=== PATIENT | male | born 1955 | race Caucasian/White ===

== ENCOUNTER 2017-01-13 21:39 | Observation (INO) | payer BC, MEDICAID ==
[2017-01-13] MEDS ORDERED: Sodium Chloride 0.9% 10 ML Syringe FLUSH PRN (21:42)
[2017-01-13] MEDS ORDERED: Famotidine 20 MG/2 ML SDV IVPUSH ONE (21:42)
[2017-01-13] MEDS ORDERED: Ticagrelor 90 MG Tab PO ONE (21:42)
--- NOTE | 2017-01-13 21:42 | EDM.PDOC ---
ED HPI GENERAL MEDICAL PROBLEM - General Chief Complaint: Chest Pain Stated Complaint: chest pain, SOB Time Seen by Provider: 01/13/17 21:42 Source of Information: Reports: Patient, Old Records ([facility] chart/EMR), Other (Friend/neighbor) History Limitations: Reports: No Limitations - History of Present Illness INITIAL COMMENTS - FREE TEXT/NARRATIVE: Patient was brought to the emergency room for evaluation of 10/10 retrosternal chest pressure with radiation to the neck region bilaterally, shoulders bilaterally, and arms with additional sudden onset dyspnea, mild dizziness, and brief showed nausea. His symptoms began at about 8 PM this evening while he was sitting in his recliner at home. He has noticed some decreased exercise tolerance and some increased dependent edema over the last couple of months. The patient denies any heart flutter orthostasis, orthopnea, diaphoresis, paresthesias, or any other anginal-type symptoms. He has had similar symptoms in the distant past with previous negative heart workup as below. No recent history of abdominal pain, heartburn, nausea, diarrhea, melena, gross hematochezia, or any food intolerance, including fatty foods, etc.. The patient also denies any recent fever, cough, wheezing, dyspnea, etc.. No history of recent headaches, visual changes, diplopia, change in mental status, or other change in neurological status. The patient did take 2 uncoated regular strength aspirin about one hour prior to arrival with symptoms improving to 3/10 at time of initial evaluation in our emergency room Onset: Today, Sudden Onset Date: 01/13/17 Onset Time: 20:00 Duration: Constant, Improving Location: Reports: Neck, Chest, Upper Extremity, Left, Upper Extremity, Right, Radiates to (As above). Denies: Head, Face, Abdomen, Back, Lower Extremity, Left, Lower Extremity, Right, Generalized Quality: Reports: Pressure, Same as Previous Episode Severity: Severe Improves with: Reports: Medication (Aspirin as above) Worsens with: Reports: None Context: Reports: Other (As above) Associated Symptoms: Reports: Nausea/Vomiting (No emesis with nausea quickly resolving after initial onset of symptoms), Shortness of Breath. 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 Denies: Allergic Rhinitis, Cataract, Glaucoma, Macular Degeneration, Retinal Detachment Other HEENT History: Bilateral presbycusis with patient not having hearing aide therapy; patient wears glasses Cardiovascular History: Reports: High Cholesterol, Hypertension. Denies: Afib, Aneurysm, Arrhythmia, Blood Clots/VTE/DVT, CAD, Heart Failure, Heart Murmur, PVD , Syncope Respiratory History: Reports: COPD, Intubation, Previous, Sleep Apnea, Other ( See Below). Denies: Asthma, Intubation, Difficult, PE, Pneumothorax, TB Other Respiratory History: noncompliant with his CPAP for his sleep apnea Gastrointestinal History: Reports: Colon Polyp, GERD, Hiatal Hernia, Other (See Below). Denies: Celiac Disease, Cholelithiasis, Chronic Constipation, Chronic Diarrhea, Diverticulosis, Gastritis, GI Bleed, Hepatitis, Inflammatory Bowel Disease, Irritable Bowel Syndrome, Jaundice, Pancreatitis, PUD Other Gastrointestinal History: Polyp of unknown type removed by colonoscopy as below Genitourinary History: Reports: BPH, Renal Calculus, Other (See Below). Denies : Acute Renal Failure, Chronic Renal Insuffiency, Retention, Urinary, STD, Urinary Incontinence, UTI, Recurrent Other Genitourinary History: Erectile dysfunction; right-sided urolithiasis in 2016 with procedure required as below Musculoskeletal History: Reports: Arthritis, Back Pain, Chronic, Neck Pain, Chronic, Osteoarthritis. Denies: Amputation, Fracture, Gout, RA, SLE Neurological History: Reports: Headaches, Chronic, Migraines, Neuropathy, Diabetic, Neuropathy, Peripheral, Other (See Below). Denies: Cerebral Aneurysms , Concussion, CVA, Head Trauma, MS, Parkinson's, Seizure, TIA Other Neuro History: Intermittent vertigo Psychiatric History: Denies: Abuse, Victim of, ADD, ADHD, Addiction, Anxiety, Depression, Psych Hospitalization(s), PTSD, Suicide Attempt, Suicidal Ideation Endocrine/Metabolic History: Reports: Diabetes, Type II, Obesity/BMI 30+. Denies: Diabetes, Type I, Hypothyroidism, IDDM Hematologic History: Reports: None. Denies: Anemia, Blood Transfusion(s), Iron Deficiency Immunologic History: Reports: None. Denies: AIDS, HIV, SLE Oncologic (Cancer) History: Reports: None. Denies: Basal Cell Carcinoma, Colon , Hodgkin's Lymphoma, Leukemia, Malignant Melanoma, Non-Hodgkin's Lymphoma, Prostate, Squamous Cell Carcinoma Dermatologic History: Reports: None. Denies: Eczema, Psoriasis - Infectious Disease History Infectious Disease History: Reports: Measles. Denies: C-Difficile, Chicken Pox , Meningitis, Mononucleosis, MRSA, Mumps, Pertussis (Whooping Cough), Rheumatic Fever, Rubella, Scarlet Fever, Shingles, TB, VRE - Past Surgical History Head Surgeries/Procedures: Reports: None HEENT Surgical History: Reports: Oral Surgery, Other (See Below). Denies: Adenoidectomy, Cataract Surgery, Eye Surgery, Laser Surgery, Myringotomy w Tube( s), Naso-Sinus Surgery, Tonsillectomy Other HEENT Surgeries/Procedures: Multiple teeth extractions with complete upper dentures currently Cardiovascular Surgical History: Reports: None. Denies: Varicose Respiratory Surgical History: Reports: None. Denies: Thoracentesis GI Surgical History: Reports: Bariatric Procedure, Colonoscopy, EGD, Ludwig Fundoplication, Polypectomy, Other (See Below). Denies: Appendectomy, Cholecystectomy, Hernia, Abdominal, Hernia, Inguinal, Hernia Repair/Other Other GI Surgeries/Procedures: Last colonoscopy in about 2005 with previous EGD , upper GI, and barium enema in the late ; Ludwig fundoplication with concomitant gastric bypass surgery in 2014 Male Surgical History: Reports: Kidney Stone Extraction, TURP-Transurethral Resection of Prostate, Other (See Below). Denies: Circumcision, Vasectomy Other Male Surgeries/Procedures: unsuccessful right ureteral stone extraction with concomitant TURP in 2016 Endocrine Surgical History: Reports: None. Denies: Thyroid Biopsy Neurological Surgical History: Reports: C-Spine, Discectomy, Laminectomy, Spinal Fusion, Other (See Below). Denies: Intracranial, Lumbar Spine Other Neurological Surgeries/Procedures: Cervical disc surgery including fusion by anterior approach in about 2007 Musculoskeletal Surgical History: Reports: Arthroscopic Knee, Arthroscopic Procedure, Hip Replacement, Other (See Below). Denies: Carpal Tunnel, Ganglion Cyst, ORIF Other Musculoskeletal Surgeries/Procedures:: Right hip TEP in about 2014; Left arthroscopic knee surgery in about 2006 Oncologic Surgical History: Reports: None Dermatological Surgical History: Reports: None - Past Imaging History Past Imaging History: Reports: Angiography (Parent negative heart catheterization in about 2007), CAT Scan (CT of the abdomen and pelvis with contrast on 08/12/14), Stress Testing (Negative Cardiolite stress test on with ejection fraction of 62%) Social & Family History - Family History HEENT: Reports: Impaired Vision, Other (See Below). Denies: Allergic Rhinitis, Glaucoma, Macular Degeneration, Retinal Detachment Other HEENT Family History: Sisters 2 with macular degeneration; 1 sister with glaucoma with another sister with severe vision problems of unknown etiology Cardiac: Reports: Bypass, CAD, Hypertension, HI, Other (See Below). Denies: Afib, Aneurysm, Arrhythmia, Blood Clots/VTE/DVT, Heart Murmur, Syncope Other Cardiac Family History: Mother with fatal HI at age 72 with initial HI in her 60s, 3 sisters with fatal MIs at ages 51, 59, and 64 with another sister having an initial HI in her late 40s with subsequent 4 vessel CABG with the sister also having several CVAs as below with eventual fatal HI at age 64; hypertension in parents, four sisters and 2 brothers Respiratory: Reports: COPD, Sleep Apnea, Other (See Below). Denies: Asthma, PE , Pneumothorax Other Respiratory Family Hisory: Father with severe COPD with history of tobacco use; sister with sleep apnea GI: Reports: None. Denies: Celiac Disease, Cholelithiasis, Colon Polyps, GERD, GI bleed, Inflammatory Bowel Disease, Irritable Bowel Syndrome, PUD : Reports: None. Denies: Dialysis, Renal Calculus, Renal Disease/ Insufficiency OBGYN: Reports: None. Denies: Endometriosis, Recurrent Spontaneous Musculoskeletal: Reports: None. Denies: Gout, RA, SLE Neurological: Reports: CVA, Neuropathy, Diabetic, Neuropathy, Peripheral, Other (See Below). Denies: Alzheimers Disease, Cerebral Aneurysms, Dementia, Migraines, MS, Parkinson's, Seizure, TIA Other Neurological Family History: Sister with recurrent CVA, diabetic neuropathy and peripheral neuropathy Psychiatric: Reports: None. Denies: Abuse, Victim of, ADD, Anxiety, Depression , Psych Hospitalization(s), PTSD, Suicide Attempt Endocrine/Metabolic: Reports: Diabetes, type II, IDDM, Other (See Below). Denies: Diabetes, Type I, Hypothyroidism Other Endocrine/Metabolic Family History: Four sisters and mother with IDDM; 2 maternal aunts may have had diabetes Hematologic: Reports: None. Denies: Anemia, SLE Immunologic: Reports: None. Denies: AIDS, HIV, SLE Dermatologic: Reports: None. Denies: Eczema, Psoriasis Oncologic: Reports: Colon, Skin, Other (See Below). Denies: Hodgkin's Lymphoma , Leukemia, Non-Hodgkin's Lymphoma, Prostate Other Oncologic Family History: Father with unknown type of skin cancer - Tobacco Use Smoking Status *Q: Former Smoker Years of Tobacco use: 40 Packs/Tins Daily: 1 (Maximum use of 2 packs per day with patient smoking between ages 12 and 52) Used Tobacco, but Quit: Yes Smoking Cessation Information Provided To Patient: No Second Hand Smoke Exposure: No Second Hand Smoke Education Provided: No - Caffeine Use Caffeine Use: Reports: Coffee (10 cups per day with less coffee when drinking soda), Soda (3 sodas per day). Denies: Energy Drinks, Tea - Alcohol Use Alcohol Use History: Yes Days Per Week of Alcohol Use: 0 (No previous DWIs, problems with alcohol abuse, etc.) Alcohol Use in Last Twelve Months: No - Recreational Drug Use Recreational Drug Use: No Drug Use in Last 12 Months: No Recreational Drug Type: Denies: Amphetamines (Speed), Cocaine, Heroin, Inhalants (Glues, Solvents, Aerosols), LSD (Acid), Marijuana/Hashish, Methamphetamine - Living Situation & Occupation Living situation: Reports: (His second and 2007 with 2 children from this relationship, although his second did previously have problems with alcohol; course from his first with 3 children from that marriage) 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 Denies: Fever, Chills, Malaise, Weakness , Fatigue, Night Sweats, Diaphoresis, Decreased Appetite, Weight Loss, Weight Gain HEENT: Reports: Glasses, Hearing Loss (Stable chronic). Denies: Dental Pain, Ear Pain, Eye Pain, Rhinitis, Sinus Problem, Throat Pain, Vision Change Respiratory: Reports: Shortness of Breath. Denies: Wheezing, Pleuritic Chest Pain, Cough Cardiovascular: Reports: Chest Pain, Dyspnea on Exertion, Edema, Lightheadedness. Denies: Blood Pressure Problem, Claudication, Orthopnea, Palpitations, PND, Syncope Endocrine: Reports: No Symptoms (Patient does not check his blood sugars at home ) GI/Abdominal: Reports: Nausea. Denies: Abdominal Pain, Anorexia, Black Stool, Bloody Stool, Constipation, Diarrhea, Decreased Appetite, Difficulty Swallowing , Distension, Flatus, Hematochezia, Melena, Stool Incontinence, Vomiting : Reports: No Symptoms. Denies: Discharge, Dysuria, Flank Pain, Frequency, Hematuria, Incontinence, Pain, Urgency, Urinary Retention Musculoskeletal: Reports: Neck Pain (Radiated chest pain as above), Shoulder Pain (As above), Arm Pain (As above). Denies: Back Pain Skin: Reports: No Symptoms. Denies: Diaphoresis, Wound Neurological: Reports: No Symptoms. Denies: Confusion, Dizziness, Headache, Numbness, Paresthesia, Tingling, Weakness Psychiatric: Reports: No Symptoms. Denies: Agitation, Anxiety, Confusion, Depression, Hallucinations Hematologic/Lymphatic: Reports: No Symptoms Immunologic: Reports: No Symptoms ED EXAM, GENERAL - Physical Exam Exam: See Below Exam Limited By: No Limitations General Appearance: Alert, WD/WN, No Apparent Distress Eye Exam: Bilateral Eye: EOMI, Normal Inspection (No nystagmus), PERRL Ears: Normal External Exam, Normal Canal, Normal TMs, Hearing Loss (Mild bilateral presbycusis). No: Hearing Grossly Normal Nose: Normal Inspection, Normal Mucosa, No Blood Throat/Mouth: Normal Inspection, Normal Lips, Normal Gums, Normal Oropharynx, Normal Voice, No Airway Compromise. No: Normal Teeth (Multiple missing teeth lowers with complete upper dentures), Dysphagia, Perioral Cyanosis Head: Atraumatic, Normocephalic. No: Facial Swelling, Facial Tenderness, Sinus Tenderness Neck: Supple, Non-Tender, Full Range of Motion, Carotid Bruit (Mild bilateral carotid bruits). No: Lymphadenopathy (L), Lymphadenopathy (R), Thyromegaly Respiratory/Chest: No Respiratory Distress, Lungs Clear, Normal Breath Sounds, No Accessory Muscle Use, Chest Non-Tender. No: Pleural Rub, Retractions Cardiovascular: Normal Peripheral Pulses, Regular Rate, Rhythm, No Edema, No Gallop, No JVD, No Murmur, No Rub. No: Gallop/S3, Gallop/S4, Friction Rub Peripheral Pulses: 2+: Radial (L), Radial (R), Dorsalis Pedis (L), Dorsalis Pedis (R) GI/Abdominal: Normal Bowel Sounds, Soft, Non-Tender, No Organomegaly, No Distention, No Abnormal Bruit, No Mass, Other (Obese). No: Guarding (Male) Exam: Deferred Rectal (Males) Exam: Deferred Back Exam: Normal Inspection, Full Range of Motion. No: CVA Tenderness (L), CVA Tenderness (R), Muscle Spasm Extremities: Normal Range of Motion, Non-Tender, Normal Capillary Refill, Pedal Edema (+1 bilateral pedal/pretibial edema). No: Mickie's Sign Neurological: Alert, Oriented, CN II-XII Intact, Normal Cognition, Normal Gait, Normal Reflexes (Negative Babinski's), No Motor/Sensory Deficits Psychiatric: Normal Affect Skin Exam: Warm, Dry, Intact, Normal Color, No Rash. No: Diaphoretic, Ecchymosis, Wound/Incision Lymphatic: No Adenopathy EKG INTERPRETATION EKG Date: 01/13/17 Time: 21:47 Rhythm: NSR Rate (Beats/Min): 63 [place]: Normal (Left cardiac axis which is a change from previous neutral cardiac axis) P-Wave: Enlarged (Mild Diffuse biphasic P waves with mild pulmonary hypertension by EKG) QRS: Wide (QRS interval 0.10 seconds representing repolarization changes with new T-wave inversion in lead 3 and resolution of previous T-wave inversion in lead V1) ST-T: Normal QT: Normal IL/PQ Interval: 0.17 seconds Comparison: Change From Previous EKG (As above since Cardiolite stress test on 12/24/11) EKG Interpretation Comments: 1. No acute ischemic changes 2. Pulmonary hypertension by EKG Course - Vital Signs Last Recorded V/S: Last Vital Signs Temp 36.1 C 01/13/17 22:20 Pulse 59 L 01/13/17 23:07 Resp 12 01/13/17 23:07 BP 131/71 01/13/17 23:07 Pulse Ox 100 01/13/17 23:07 Vital Signs - 24 hr 01/13/17 01/13/17 01/13/17 21:39 21:41 21:42 Temperature [ 36.6 C Temporal] Pulse, 67 64 Peripheral [ Left Brachial] Respiratory 18 17 Rate Blood Pressure 167/67 H 167/67 H [Left Upper Arm ] O2 Sat by Pulse 98 96 Oximetry O2 Sat by Pulse 99 Oximetry [ Nasal Cannula] 01/13/17 01/13/17 01/13/17 22:15 22:20 22:30 Temperature [ 36.1 C Temporal] Pulse, 67 67 64 Peripheral [ Left Brachial] Respiratory 13 14 13 Rate Blood Pressure 137/76 139/73 121/82 [Left Upper Arm ] O2 Sat by Pulse 99 99 99 Oximetry O2 Sat by Pulse Oximetry [ Nasal Cannula] 01/13/17 01/13/17 01/13/17 22:48 23:07 23:25 Temperature [ Temporal] Pulse, 61 59 L 58 L Peripheral [ Left Brachial] Respiratory 13 12 13 Rate Blood Pressure 123/65 131/71 135/71 [Left Upper Arm ] O2 Sat by Pulse 99 100 100 Oximetry O2 Sat by Pulse Oximetry [ Nasal Cannula] 01/13/17 23:49 Temperature [ Temporal] Pulse, 60 Peripheral [ Left Brachial] Respiratory 12 Rate Blood Pressure 129/75 [Left Upper Arm ] O2 Sat by Pulse 100 Oximetry O2 Sat by Pulse Oximetry [ Nasal Cannula] - Orders/Labs/Meds Orders: Active Orders 24 hr Category Date Time Status Cardiac Monitoring [RC] . DIRECTED Care 01/13/17 21:42 Active EKG Documentation Completion [RC] ASDIRECTED Care 01/13/17 21:42 Active Oxygen Therapy, ED [RC] CONTINUOUS Care 01/13/17 21:42 Active Peripheral IV Care [RC] . DIRECTED Care 01/13/17 21:42 Active Pulse Oximetry [RC] CONTINUOUS Care 01/13/17 21:42 Active Up With Assistance [RC] PFP Care 01/13/17 21:42 Active Vital Signs [RC] PFP Care 01/13/17 21:42 Active Nothing per Oral Now Diet [DIET] Diet 01/13/17 Breakfast Active Chest 1V Frontal [CR] Stat Exams 01/13/17 21:42 Taken Sodium Chloride 0.9% [Saline Flush] Med 01/13/17 21:42 Active 10 ml FLUSH ASDIRECTED PRN Obtain Past Medical Record [OM.PC] Urgent Oth 01/13/17 21:42 Active Peripheral IV Insertion Adult [OM.PC] Stat Oth 01/13/17 21:42 Ordered Resuscitation Status Stat Resus Stat 01/13/17 21:42 Ordered Medication Orders Sodium Chloride (Saline Flush) 10 ml FLUSH ASDIRECTED PRN PRN Reason: Keep Vein Open Last Admin: 01/13/17 22:15 Dose: 10 ml Labs: Laboratory Tests 01/13/17 01/13/17 01/13/17 Range/Units 21:47 21:47 21:47 WBC 4.7 (4.0-10.2) K/uL RBC 4.46 (4.33-5.41) M/uL Hgb 13.1 (13.1-16.8) g/dL Hct 39.0 (39.0-49.0) % MCV 87.4 (84.0-98.0) fL MCH 29.4 (28.2-33.3) pg MCHC 33.6 (31.7-36.0) g/dL RDW 13.4 (11.2-14.1) % Plt Count 213 (150-350) K/uL Neut % (Auto) 47.6 (45.0-80.0) % Lymph % (Auto) 40.3 (10.0-50.0) % [place] % (Auto) 8.2 (2.0-14.0) % Eos % (Auto) 3.0 (0.0-5.0) % Baso % (Auto) 0.9 (0.0-2.0) % Neut # (Auto) 2.22 (1.40-7.00) K/uL Lymph # (Auto) 1.88 (0.50-3.50) K/uL Gall[place] # (Auto) 0.38 (0.00-1.00) K/uL Eos # (Auto) 0.14 (0.00-0.50) K/uL Baso # (Auto) 0.04 (0.00-0.20) K/uL PT 10.7 (9.8-11.7) SEC INR 1.0 APTT 24.9 (22.1-29.8) SEC D-Dimer, Quantitative < 100 (0-400) ng/mL Sodium (136-145) mmol/L Potassium (3.5-5.1) mmol/L Chloride (98-107) mmol/L Carbon Dioxide (21.0-32.0) mmol/L BUN (7-18) mg/dL Creatinine (0.51-1.17) mg/dL Est Cr Clr Drug Dosing mL/min Estimated GFR (MDRD) mL/min Glucose (74-106) mg/dL Lactic Acid (0.4-2.0) mmol/L Uric Acid (2.6-7.2) mg/dL Calcium (8.5-10.1) mg/dL Magnesium (1.8-2.4) mg/dL Total Bilirubin (0.2-1.0) mg/dL AST (15-37) U/L ALT (12-78) U/L Alkaline Phosphatase (46-116) IU/L Creatine Kinase (26-308) U/L Creatine Kinase Index (0.0-2.5) % CK-MB (CK-2) (0.00-3.60) ng/mL Troponin I (0.000-0.056) ng/mL NT-Pro-B Natriuret Pep (0-125) pg/mL Total Protein (6.4-8.2) g/dL Albumin (3.4-5.0) g/dL TSH, Ultra Sensitive (0.358-3.740) mIU/mL 01/13/17 01/13/17 Range/Units 21:47 21:47 WBC (4.0-10.2) K/uL RBC (4.33-5.41) M/uL Hgb (13.1-16.8) g/dL Hct (39.0-49.0) % MCV (84.0-98.0) fL MCH (28.2-33.3) pg MCHC (31.7-36.0) g/dL RDW (11.2-14.1) % Plt Count (150-350) K/uL Neut % (Auto) (45.0-80.0) % Lymph % (Auto) (10.0-50.0) % Gall[place] % (Auto) (2.0-14.0) % Eos % (Auto) (0.0-5.0) % Baso % (Auto) (0.0-2.0) % Neut # (Auto) (1.40-7.00) K/uL Lymph # (Auto) (0.50-3.50) K/uL Gall[place] # (Auto) (0.00-1.00) K/uL Eos # (Auto) (0.00-0.50) K/uL Baso # (Auto) (0.00-0.20) K/uL PT (9.8-11.7) SEC INR APTT (22.1-29.8) SEC D-Dimer, Quantitative (0-400) ng/mL Sodium 141 (136-145) mmol/L Potassium 4.0 (3.5-5.1) mmol/L Chloride 107 (98-107) mmol/L Carbon Dioxide 24.1 (21.0-32.0) mmol/L BUN 15 (7-18) mg/dL Creatinine 0.87 (0.51-1.17) mg/dL Est Cr Clr Drug Dosing 92.56 mL/min Estimated GFR (MDRD) > 60 mL/min Glucose 213 H (74-106) mg/dL Lactic Acid 1.5 (0.4-2.0) mmol/L Uric Acid 4.6 (2.6-7.2) mg/dL Calcium 8.8 (8.5-10.1) mg/dL Magnesium 1.8 (1.8-2.4) mg/dL Total Bilirubin 0.3 (0.2-1.0) mg/dL AST 10 L (15-37) U/L ALT 19 (12-78) U/L Alkaline Phosphatase 76 (46-116) IU/L Creatine Kinase 80 (26-308) U/L Creatine Kinase Index 1.0 (0.0-2.5) % CK-MB (CK-2) 0.80 (0.00-3.60) ng/mL Troponin I 0.013 (0.000-0.056) ng/mL NT-Pro-B Natriuret Pep 65 (0-125) pg/mL Total Protein 6.4 (6.4-8.2) g/dL Albumin 3.3 L (3.4-5.0) g/dL TSH, Ultra Sensitive 1.193 (0.358-3.740) mIU/mL Meds: Medications Generic Name Dose Route Start Last Admin Trade Name Freq PRN Reason Stop Dose Admin Sodium Chloride 10 ml 01/13/17 21:42 01/13/17 22:15 Saline Flush FLUSH 10 ml ASDIRECTED PRN Administration Keep Vein Open Discontinued Medications Generic Name Dose Route Start Last Admin Trade Name Freq PRN Reason Stop Dose Admin Famotidine 40 mg 01/13/17 21:42 01/13/17 22:09 Pepcid IVPUSH 01/13/17 21:43 40 mg ONETIME ONE Administration Ticagrelor 180 mg 01/13/17 21:42 01/13/17 22:09 Brilinta PO 01/13/17 21:43 180 mg ONETIME ONE Administration - Radiology Interpretation Free Text/Narrative:: 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 No pulmonary infiltrates or pneumothorax. Mild prominence of the proximal aortic arch with additional mild cardiomegaly Departure - Departure Time of Disposition: 00:05 Disposition: Refer to Observation Condition: Good Clinical Impression: Bradycardia, Peptic reflux disease, Hypoalbuminemia Chest pain Qualifiers: Chest pain type: precordial pain Qualified Code(s): R07.2 - Precordial pain COPD (chronic obstructive pulmonary disease) Qualifiers: COPD type: emphysema Emphysema type: panlobular Qualified Code(s): J43.1 - Panlobular emphysema Sleep apnea Qualifiers: Sleep apnea type: unspecified type Qualified Code(s): G47.30 - Sleep apnea, unspecified Hyperlipidemia Qualifiers: Hyperlipidemia type: pure hypercholesterolemia Qualified Code(s): E78.00 - Pure hypercholesterolemia, unspecified; E78.0 - Pure hypercholesterolemia Osteoarthritis Qualifiers: Osteoarthritis location: multiple joints Osteoarthritis type: primary Qualified Code(s): M15.0 - Primary generalized (osteo)arthritis Diabetes mellitus Qualifiers: Diabetes mellitus type: type 2 Diabetes mellitus complication status: with neurologic complications Diabetes mellitus complication detail: with polyneuropathy Diabetes mellitus prison insulin use: without investment associate use Qualified Code(s): E11.42 - Type 2 diabetes mellitus with diabetic polyneuropathy Referrals: Abram Rascon PA-C [Primary Care Provider] - Forms: ED Department Discharge Care Plan Goals: See plan - Problem List & Annotations (1) Chest pain SNOMED Code(s): 30526724 Code(s): R07.9 - CHEST PAIN, UNSPECIFIED Status: Acute Priority: High Current Visit: Yes Onset Date: 01/13/17 Annotation/Comment:: Chest pain protocol initiated upon patient's arrival to the emergency room. Patient had already taken aspirin prior to arrival as above. No beta umu therapy was given secondary to his baseline borderline bradycardia on arrival with brief bradycardia as above. Initiate standard rule out HI orders. [facility] physician assumes care in the a.m. Cardiology consultation depending on his clinical course, although cardiology consultation prior to discharge is recommended secondary to his brief bradycardia during our emergency room evaluation. Patient was chest pain free at time of admission Qualifiers: Chest pain type: precordial pain Qualified Code(s): R07.2 - Precordial pain (2) Bradycardia SNOMED Code(s): 71647372 Code(s): R00.1 - BRADYCARDIA, UNSPECIFIED Status: Acute Priority: High Current Visit: Yes Onset Date: 01/14/17 Annotation/Comment:: Brief bradycardia today as above. Note the patient was symptomatic and somewhat dizzy with this episode occurring when the patient began sitting up and bending his neck forward. The patient has noted some recurrent episodes of brief dizziness when moving his neck, including working under the car, etc. during the last year. Attempt to obtain carotid artery Doppler studies prior to discharge with further cardiac workup, including possible event monitor, etc. in the future (3) COPD (chronic obstructive pulmonary disease) SNOMED Code(s): 82795666 Code(s): J44.9 - CHRONIC OBSTRUCTIVE PULMONARY DISEASE, UNSPECIFIED Status : Chronic Priority: Medium Current Visit: Yes Annotation/Comment:: Stable by history with no recent fever or bronchitic type symptoms. Note significant COPD by chest x-ray. Patient would benefit from PFTs after his heart status has been clarified. Patient has been noncompliant with his routine preventative healthcare secondary to problems with no insurance. He would benefit from yearly physical exam, repeat colonoscopy secondary to his previous history of colonic polyps, etc. with these to be conducted after cardiac evaluation as above Qualifiers: COPD type: emphysema Emphysema type: panlobular Qualified Code(s): J43.1 - Panlobular emphysema (4) Diabetes mellitus SNOMED Code(s): 03592839 Code(s): E11.9 - TYPE 2 DIABETES MELLITUS WITHOUT COMPLICATIONS Status: Chronic Priority: Medium Current Visit: Yes Annotation/Comment:: Currently diet controlled the patient apparently taken off of his metformin after his gastric bypass surgery. Glycosylated hemoglobin in the a.m. Weight loss in moderation advisable Qualifiers: Diabetes mellitus type: type 2 Diabetes mellitus complication status: with neurologic complications Diabetes mellitus complication detail: with polyneuropathy Diabetes mellitus investment associate insulin use: without prison use Qualified Code(s): E11.42 - Type 2 diabetes mellitus with diabetic polyneuropathy (5) Hyperlipidemia SNOMED Code(s): 84573165 Code(s): E78.5 - HYPERLIPIDEMIA, UNSPECIFIED Status: Chronic Priority: Medium Current Visit: Yes Annotation/Comment:: Currently not under therapy. Lipid panel in the a.m. 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, NEC Status: Chronic Priority: Medium Current Visit: Yes Annotation/Comment:: Consider high-protein Glucerna supplements as snacks at discharge with close follow-up by his regular provider (7) Osteoarthritis SNOMED Code(s): 249984790 Code(s): M19.90 - UNSPECIFIED OSTEOARTHRITIS, UNSPECIFIED SITE Status: Chronic Priority: Medium Current Visit: Yes Annotation/Comment:: Stable by history Qualifiers: Osteoarthritis location: multiple joints Osteoarthritis type: primary Qualified Code(s): M15.0 - Primary generalized (osteo)arthritis (8) Peptic reflux disease SNOMED Code(s): 28170318 Code(s): K21.9 - GASTRO-ESOPHAGEAL REFLUX DISEASE WITHOUT ESOPHAGITIS Status: Chronic Priority: Medium Current Visit: Yes Annotation/Comment:: Stable by history with previous surgery as above. High-dose IV Pepcid given as GI prophylaxis (9) Sleep apnea SNOMED Code(s): 87927930 Code(s): G47.30 - SLEEP APNEA, UNSPECIFIED Status: Chronic Priority: Medium Current Visit: Yes Annotation/Comment:: He has been noncompliant with his CPAP with the patient strongly recommended to remain compliant with this therapy. Consider repeat sleep study in the future secondary to previous gastric bypass surgery, although patient has regained some of this weight since that operation. Qualifiers: Sleep apnea type: unspecified type Qualified Code(s): G47.30 - Sleep apnea , unspecified - Problem List Review Problem List Initiated/Reviewed/Updated: Yes - My Orders Last 24 Hours: My Active Orders 01/13/17 21:42 Cardiac Monitoring [RC] . DIRECTED EKG Documentation Completion [RC] ASDIRECTED Oxygen Therapy, ED [RC] CONTINUOUS Peripheral IV Care [RC] . DIRECTED Pulse Oximetry [RC] CONTINUOUS Up With Assistance [RC] PFP Vital Signs [RC] PFP Chest 1V Frontal [CR] Stat Sodium Chloride 0.9% [Saline Flush] 10 ml FLUSH ASDIRECTED PRN Obtain Past Medical Record [OM.PC] Urgent Peripheral IV Insertion Adult [OM.PC] Stat Resuscitation Status Stat 01/13/17 Breakfast Nothing per Oral Now Diet [DIET] - Assessment/Plan Admission H&P: Please use this note as an admission H&P Last 24 Hours: My Active Orders 01/13/17 21:42 Cardiac Monitoring [RC] . DIRECTED EKG Documentation Completion [RC] ASDIRECTED Oxygen Therapy, ED [RC] CONTINUOUS Peripheral IV Care [RC] . DIRECTED Pulse Oximetry [RC] CONTINUOUS Up With Assistance [RC] PFP Vital Signs [RC] PFP Chest 1V Frontal [CR] Stat Sodium Chloride 0.9% [Saline Flush] 10 ml FLUSH ASDIRECTED PRN Obtain Past Medical Record [OM.PC] Urgent Peripheral IV Insertion Adult [OM.PC] Stat Resuscitation Status Stat 01/13/17 Breakfast Nothing per Oral Now Diet [DIET] Assessment:: As above Plan: As above. Extensive precautions were given to the patient, who is in agreement with the treatment plan. [facility] physician assumes care in the a.m.. The patient's condition is stable enough for observation status and general supervision.
[2017-01-13 22:16] LABS: CHLORIDE,CL 107 mmol/L (98-107); SODIUM,NA 141 mmol/L (136-145)
[2017-01-14] MEDS ORDERED: Temazepam 15 MG Cap PO PRN (00:13)
[2017-01-14] MEDS ORDERED: Sodium Chloride 0.9% 10 ML Syringe FLUSH PRN (00:13)
[2017-01-14] MEDS ORDERED: Acetaminophen 325 MG Tab PO PRN (00:13)
[2017-01-14 07:16] LABS: CHLORIDE,CL 107 mmol/L (98-107); SODIUM,NA 140 mmol/L (136-145)
[2017-01-14 07:24] VITALS: BP 116/65
[2017-01-14] MEDS ORDERED: Heparin Sodium 5,000 Units/ML Vial IVPUSH ONE (07:35)
[2017-01-14] MEDS ORDERED: Simvastatin 20 MG Tab PO ONE (07:36)
[2017-01-14] MEDS ORDERED: Heparin Sodium/D5W 25,000 UNITS/500 ML BAG IV SCH (07:45)
[2017-01-14] MEDS ORDERED: Sodium Chloride 0.9% 1,000 ML IV SCH (07:45)
--- NOTE | 2017-01-14 07:49 | PCM.DCSUM1 ---
Discharge Summary - Hospital Course HPI Initial Comments: See emergency room note/admission H&P Brief History: See emergency room note/admission H&P - Discharge Data Discharge Date: 01/14/17 Discharge Disposition: DC/Tfer to Acute Hospital 02 Condition: Fair - Discharge Diagnosis/Problem(s) (1) Acute AK SNOMED Code(s): 03162468 ICD Code: I21.9 - ACUTE MYOCARDIAL INFARCTION, UNSPECIFIED Status: Acute Priority: High Current Visit: Yes Onset Date: 01/14/17 Problem Details: Positive troponin I is evidence of mild inferior wall cardiac ischemia by this morning's EKG. IV heparin was initiated as per non-STEMI protocol with patient also given 80 mg of Zocor shortly after above blood work results were received. Patient continues to be chest pain-free as below with additional brief recurrent episodes of moderate bradycardia as below. Subsequent telephone consultation at 07:[address] Sanchez, hospitalist at [facility] in [place] who does accept the patient for direct admission into their facility. No further treatment recommendations given. Ambulance transfer with graphite pan drier tender accompaniment. Patient does have issues with finances with no medical insurance at this time. He was advised to contact our facility after discharge from [facility] for financial assistance concerning hospital charges from our facility. Emotional support was provided. Qualifiers: Myocardial infarction ST status: non-ST elevation myocardial infarction Qualified Code(s): I21.4 - Non-ST elevation (NSTEMI) myocardial infarction (2) Chest pain SNOMED Code(s): 69829754 ICD Code: R07.9 - CHEST PAIN, UNSPECIFIED Status: Acute Priority: High Current Visit: Yes Onset Date: 01/13/17 Problem Details: Despite troponin I and recurrent brief bradycardia patient denies any chest pain or other anginal type symptoms at time of discharge/transfer. Chest pain protocol was initiated upon patient's arrival to the emergency room. Patient had already taken aspirin prior to arrival as above. No beta umu therapy was given secondary to his baseline borderline bradycardia on arrival with brief bradycardia as below. Standard rule out AK orders were initiated with positive results as above. The patient was also chest pain free at time of admission to our facility Qualifiers: Chest pain type: precordial pain Qualified Code(s): R07.2 - Precordial pain (3) Bradycardia SNOMED Code(s): 73198484 ICD Code: R00.1 - BRADYCARDIA, UNSPECIFIED Status: Acute Priority: High Current Visit: Yes Onset Date: 01/14/17 Problem Details: Brief bradycardia during emergency room evaluation with additional long pauses and brief asystole at 01:30 a.m., which was symptomatic with some dizziness but no chest pain, today as below. Note the patient was symptomatic and somewhat dizzy with these episodes occurring when the patient began sitting up and bending his neck forward. The patient has noted some recurrent episodes of brief dizziness when moving his neck, including working under the car, etc. during the last year. Carotid artery Doppler studies were ordered for this morning however were canceled secondary to patient's transfer for his acute AK. Further workup depending on his clinical course, including possible EP studies, carotid artery Doppler studies, etc. (4) COPD (chronic obstructive pulmonary disease) SNOMED Code(s): 56834310 ICD Code: J44.9 - CHRONIC OBSTRUCTIVE PULMONARY DISEASE, UNSPECIFIED Status : Chronic Priority: Medium Current Visit: Yes Problem Details: Stable by history with no recent fever or bronchitic type symptoms. Note significant COPD by chest x-ray. Patient would benefit from PFTs after his heart status has been clarified. Patient has been noncompliant with his routine preventative healthcare secondary to problems with no insurance. He would benefit from yearly physical exam, repeat colonoscopy secondary to his previous history of colonic polyps, etc. with these to be conducted after cardiac evaluation as above Qualifiers: COPD type: emphysema Emphysema type: panlobular Qualified Code(s): J43.1 - Panlobular emphysema (5) Diabetes mellitus SNOMED Code(s): 26962215 ICD Code: E11.9 - TYPE 2 DIABETES MELLITUS WITHOUT COMPLICATIONS Status: Chronic Priority: Medium Current Visit: Yes Problem Details: Elevated glycosylated hemoglobin of 8.2% this morning. Patient will need to be restarted on medications prior to discharge from accepting facility with a heart healthy, ADA diet and weight loss and moderation per accepting providers. Patient is currently only diet controlled with the patient apparently taken off of his metformin after his gastric bypass surgery. Qualifiers: Diabetes mellitus type: type 2 Diabetes mellitus complication status: with neurologic complications Diabetes mellitus complication detail: with polyneuropathy Diabetes mellitus intermission coordinator insulin use: without intermission coordinator use Qualified Code(s): E11.42 - Type 2 diabetes mellitus with diabetic polyneuropathy (6) Hyperlipidemia SNOMED Code(s): 45579863 ICD Code: E78.5 - HYPERLIPIDEMIA, UNSPECIFIED Status: Chronic Priority: Medium Current Visit: Yes Problem Details: Currently not under therapy. Lipid panel is morning does show some dyslipidemia. High-dose Zocor therapy given this morning secondary to acute AK with further statin therapy at discharge per instructions from accepting providers Qualifiers: Hyperlipidemia type: mixed hyperlipidemia Qualified Code(s): E78.2 - Mixed hyperlipidemia (7) Hypoalbuminemia SNOMED Code(s): 683967304 ICD Code: E88.09 - OTH DISORDERS OF PLASMA-PROTEIN METABOLISM, NEC Status: Chronic Priority: Medium Current Visit: Yes Problem Details: Consider high -protein Glucerna supplements as snacks at discharge with close follow-up by his regular provider (8) Osteoarthritis SNOMED Code(s): 483729899 ICD Code: M19.90 - UNSPECIFIED OSTEOARTHRITIS, UNSPECIFIED SITE Status: Chronic Priority: Medium Current Visit: Yes Problem Details: Stable by history Qualifiers: Osteoarthritis location: multiple joints Osteoarthritis type: primary Qualified Code(s): M15.0 - Primary generalized (osteo)arthritis (9) Peptic reflux disease SNOMED Code(s): 34518258 ICD Code: K21.9 - GASTRO-ESOPHAGEAL REFLUX DISEASE WITHOUT ESOPHAGITIS Status: Chronic Priority: Medium Current Visit: Yes Problem Details: Stable by history with previous gastric bypass surgery 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 High-dose IV Pepcid given as GI prophylaxis in the emergency room upon patient's arrival. (10) Sleep apnea SNOMED Code(s): 31657700 ICD Code: G47.30 - SLEEP APNEA, UNSPECIFIED Status: Chronic Priority: Medium Current Visit: Yes Problem Details: He has been noncompliant with his CPAP with the patient strongly recommended to remain compliant with this therapy. Consider repeat sleep study in the future secondary to previous gastric bypass surgery, although patient has regained some of this weight since that operation. Qualifiers: Sleep apnea type: unspecified type Qualified Code(s): G47.30 - Sleep apnea , unspecified (11) Anemia SNOMED Code(s): 257005744 ICD Code: D64.9 - ANEMIA, UNSPECIFIED Status: Acute Priority: Medium Current Visit: Yes Onset Date: 01/14/17 Problem Details: Mild decreased hemoglobin this morning with no evidence of abdominal pain, acute GI bleed, etc.. Continue to observe closely secondary to initiation of IV heparin as above. Further workup depending on his clinical course Qualifiers: Anemia type: unspecified type Qualified Code(s): D64.9 - Anemia, unspecified (12) Hypocalcemia SNOMED Code(s): 5374069 ICD Code: E83.51 - HYPOCALCEMIA Status: Acute Priority: Medium Current Visit: Yes Onset Date: 01/14/17 Problem Details: Mild hypocalcemia. Observe for now - Patient Summary/Data Operative Procedure(s) Performed: None Complications: None Consults: Dr. Sanchez, hospitalist at [facility] in [place], as above Labs Pending at D/C: None Recommended Follow-up Testing/Procedures: As above and as per discharge instructions Planned Operative Procedure(s) after DC: Possible heart catheterization and/or EP studies Hospital Course: The patient was admitted to this facility in observation status on telemetry with initiation of standard rule out AK orders as above. Note positive troponin I this morning and evidence of inferior wall cardiac ischemia by EKG. Chest pain protocol in the emergency room as above with additional initiation of sodium heparin infusion with previous IV bolus and high-dose Zocor this morning as above. No other complications during this hospitalization. He has remained nothing by mouth with exception of ice chips and medications throughout this hospitalization - Patient Instructions Diet: NPO Activity: No Strenuous Activities Driving: Do Not Drive Showering/Bathing: No Showering Notify Provider of: Increased Pain, Nausea and/or Vomiting Other/Special Instructions: Ambulance transfer with graphite pan drier tender accompaniment - Discharge Plan Home Medications: Home Meds Aspirin 325 mg PO DAILY 04/22/14 [History] Lisinopril [Lisinopril] 10 mg PO DAILY 04/22/14 [History] Tamsulosin HCl [Tamsulosin HCl] 0.4 mg PO DAILY 04/22/14 [History] Patient Handouts: Nonspecific Chest Pain, Heart Attack, [id number] Forms: ED Department Discharge, Interfacility Transfer EMTALA Referrals: Abram Rascon PA-C [Primary Care Provider] - - Discharge Summary/Plan Comment DC Time >30 min.: Yes (Coordination of care) Discharge Summary/Plan Comment: As above. Extensive precautions were given to the patient, who is in agreement with the treatment plan. - General Info Date of Service: 01/14/17 Admission Dx/Problem (Free Text: 1. Chest pain 2. Bradycardia Functional Status: Reports: Pain Controlled, Ambulating (With assist), Urinating. Denies: Tolerating Diet (Still nothing by mouth), New Symptoms, Incentive Spirometry Numeric/FACES Score: 0 - Review of Systems General: Reports: No Symptoms. Denies: Fever, Weakness, Fatigue, Malaise, Chills, Night Sweats (Wants breakfast this morning), Appetite HEENT: Reports: Glasses. Denies: Dysphasia, Ear Pain, Eye Pain, Headaches, Post Nasal Drip, Sinus Congestion, Sore Throat, Rhinitis, Visual Changes Pulmonary: Reports: No Symptoms. Denies: Shortness of Breath, Pleuritic Chest Pain, Cough, Sputum, Hemoptysis, Wheezing Cardiovascular: Reports: Edema (Stable dependent), Lightheadedness (With episodes of bradycardia). Denies: Chest Pain, Palpitations, Dyspnea on Exertion , Orthopnea Gastrointestinal: Denies: Abdominal Pain, Constipation, Decreased Appetite, Diarrhea, Difficulty Swallowing, Flatus, Hematochezia, Melena, Nausea, Vomiting Genitourinary: Reports: No Symptoms Musculoskeletal: Reports: No Symptoms. Denies: Neck Pain, Shoulder Pain, Arm Pain, Back Pain, Leg Pain Skin: Reports: No Symptoms. Denies: Diaphoresis, Bruising Neurological: Reports: Dizziness (Occasional brief with bradycardia as above). Denies: Confusion, Headache, Numbness, Paresthesia, Seizure, Syncope, Weakness, Change in Speech Psychiatric: Reports: No Symptoms. Denies: Confusion, Depression, Anxiety, Agitation, Cravings, Hallucinations - Patient Data Vitals - Most Recent: Last Vital Signs Temp 36.6 C 01/14/17 07:33 Pulse 55 L 01/14/17 07:33 Resp 18 01/14/17 07:33 BP 116/65 01/14/17 07:33 Pulse Ox 100 01/14/17 07:33 Vital Signs - 24 hr 01/13/17 01/13/17 01/13/17 21:39 21:41 21:42 Temperature [ Oral] Temperature [ 36.6 C Temporal] Pulse, 67 64 Peripheral [ Left Brachial] Respiratory 18 17 Rate Blood Pressure Blood Pressure [Left Lower Arm ] Blood Pressure 167/67 H 167/67 H [Left Upper Arm ] O2 Sat by Pulse 98 96 Oximetry O2 Sat by Pulse 99 Oximetry [ Nasal Cannula] 01/13/17 01/13/17 01/13/17 22:15 22:20 22:30 Temperature [ Oral] Temperature [ 36.1 C Temporal] Pulse, 67 67 64 Peripheral [ Left Brachial] Respiratory 13 14 13 Rate Blood Pressure Blood Pressure [Left Lower Arm ] Blood Pressure 137/76 139/73 121/82 [Left Upper Arm ] O2 Sat by Pulse 99 99 99 Oximetry O2 Sat by Pulse Oximetry [ Nasal Cannula] 01/13/17 01/13/17 01/13/17 22:48 23:07 23:25 Temperature [ Oral] Temperature [ Temporal] Pulse, 61 59 L 58 L Peripheral [ Left Brachial] Respiratory 13 12 13 Rate Blood Pressure Blood Pressure [Left Lower Arm ] Blood Pressure 123/65 131/71 135/71 [Left Upper Arm ] O2 Sat by Pulse 99 100 100 Oximetry O2 Sat by Pulse Oximetry [ Nasal Cannula] 01/13/17 01/14/17 01/14/17 23:49 00:13 01:20 Temperature [ Oral] Temperature [ Temporal] Pulse, 60 55 L Peripheral [ Left Brachial] Respiratory 12 16 Rate Blood Pressure Blood Pressure [Left Lower Arm ] Blood Pressure 129/75 131/77 [Left Upper Arm ] O2 Sat by Pulse 100 100 100 Oximetry O2 Sat by Pulse Oximetry [ Nasal Cannula] 01/14/17 01/14/17 01/14/17 02:40 04:00 06:25 Temperature [ 36.6 C 36.8 C Oral] Temperature [ Temporal] Pulse, 53 L 66 58 L Peripheral [ Left Brachial] Respiratory 18 16 18 Rate Blood Pressure Blood Pressure 98/40 L [Left Lower Arm ] Blood Pressure 100/60 114/68 110/66 [Left Upper Arm ] O2 Sat by Pulse 100 100 99 Oximetry O2 Sat by Pulse Oximetry [ Nasal Cannula] 01/14/17 01/14/17 07:23 07:33 Temperature [ Oral] Temperature [ 36.6 C Temporal] Pulse, 55 L Peripheral [ Left Brachial] Respiratory 18 Rate Blood Pressure 116/65 Blood Pressure [Left Lower Arm ] Blood Pressure 116/65 [Left Upper Arm ] O2 Sat by Pulse 100 Oximetry O2 Sat by Pulse Oximetry [ Nasal Cannula] Weight - Most Recent: 118.252 kg Imaging Impressions - Last 24 hrs: 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 Patient did have some brief bradycardia with a long pause and heart rate in the 30s initially in the emergency room with repeat 5-6 second episodes 2 of long positive/asystole and bradycardia at 01:13 hours this morning. No other ectopy or arrhythmia Chest x-ray, portable, shows severe COPD with probable pulmonary hypertension and mild centralized CHF. No pulmonary infiltrates or pneumothorax. Mild prominence of the proximal aortic arch with additional mild cardiomegaly. Official chest x-ray report from the radiologist does show some evidence of possible small left pleural effusion. Lab Results - Last 24 hrs: Laboratory Results - last 24 hr 01/14/17 01/14/17 01/14/17 Range/Units 06:17 06:17 06:17 WBC 4.4 (4.0-10.2) K/uL RBC 4.21 L (4.33-5.41) M/uL Hgb 12.4 L (13.1-16.8) g/dL Hct 37.0 L (39.0-49.0) % MCV 87.9 (84.0-98.0) fL MCH 29.5 (28.2-33.3) pg MCHC 33.5 (31.7-36.0) g/dL RDW 13.1 (11.2-14.1) % Plt Count 194 (150-350) K/uL Neut % (Auto) 51.7 (45.0-80.0) % Lymph % (Auto) 33.9 (10.0-50.0) % [place] % (Auto) 9.6 (2.0-14.0) % Eos % (Auto) 4.1 (0.0-5.0) % Baso % (Auto) 0.7 (0.0-2.0) % Neut # (Auto) 2.27 (1.40-7.00) K/uL Lymph # (Auto) 1.49 (0.50-3.50) K/uL [place] # (Auto) 0.42 (0.00-1.00) K/uL Eos # (Auto) 0.18 (0.00-0.50) K/uL Baso # (Auto) 0.03 (0.00-0.20) K/uL Sodium 140 (136-145) mmol/L Potassium 4.3 (3.5-5.1) mmol/L Chloride 107 (98-107) mmol/L Carbon Dioxide 24.9 (21.0-32.0) mmol/L BUN 14 (7-18) mg/dL Creatinine 0.76 (0.51-1.17) mg/dL Est Cr Clr Drug Dosing 105.96 mL/min Estimated GFR (MDRD) > 60 mL/min Glucose 174 H (74-106) mg/dL Hemoglobin A1c 8.2 H (4.3-5.7) % Calcium 8.4 L (8.5-10.1) mg/dL Total Bilirubin 0.5 (0.2-1.0) mg/dL AST 11 L (15-37) U/L ALT 19 (12-78) U/L Alkaline Phosphatase 56 (46-116) IU/L Creatine Kinase 69 (26-308) U/L Creatine Kinase Index 1.2 (0.0-2.5) % CK-MB (CK-2) 0.80 (0.00-3.60) ng/mL Troponin I 0.120 H* (0.000-0.056) ng/mL Total Protein 5.9 L (6.4-8.2) g/dL Albumin 3.1 L (3.4-5.0) g/dL Triglycerides 145 (30-150) mg/dL Cholesterol 135 (100-200) mg/dL LDL Cholesterol, Calc 68 (0-100) mg/dL HDL Cholesterol 38 L (40-60) mg/dL Laboratory Tests 01/13/17 01/13/17 01/13/17 Range/Units 21:47 21:47 21:47 WBC 4.7 (4.0-10.2) K/uL RBC 4.46 (4.33-5.41) M/uL Hgb 13.1 (13.1-16.8) g/dL Hct 39.0 (39.0-49.0) % MCV 87.4 (84.0-98.0) fL MCH 29.4 (28.2-33.3) pg MCHC 33.6 (31.7-36.0) g/dL RDW 13.4 (11.2-14.1) % Plt Count 213 (150-350) K/uL Neut % (Auto) 47.6 (45.0-80.0) % Lymph % (Auto) 40.3 (10.0-50.0) % [place] % (Auto) 8.2 (2.0-14.0) % Eos % (Auto) 3.0 (0.0-5.0) % Baso % (Auto) 0.9 (0.0-2.0) % Neut # (Auto) 2.22 (1.40-7.00) K/uL Lymph # (Auto) 1.88 (0.50-3.50) K/uL [place] # (Auto) 0.38 (0.00-1.00) K/uL Eos # (Auto) 0.14 (0.00-0.50) K/uL Baso # (Auto) 0.04 (0.00-0.20) K/uL PT 10.7 (9.8-11.7) SEC INR 1.0 APTT 24.9 (22.1-29.8) SEC D-Dimer, Quantitative < 100 (0-400) ng/mL Sodium (136-145) mmol/L Potassium (3.5-5.1) mmol/L Chloride (98-107) mmol/L Carbon Dioxide (21.0-32.0) mmol/L BUN (7-18) mg/dL Creatinine (0.51-1.17) mg/dL Est Cr Clr Drug Dosing mL/min Estimated GFR (MDRD) mL/min Glucose (74-106) mg/dL Hemoglobin A1c (4.3-5.7) % Lactic Acid (0.4-2.0) mmol/L Uric Acid (2.6-7.2) mg/dL Calcium (8.5-10.1) mg/dL Magnesium (1.8-2.4) mg/dL Total Bilirubin (0.2-1.0) mg/dL AST (15-37) U/L ALT (12-78) U/L Alkaline Phosphatase (46-116) IU/L Creatine Kinase (26-308) U/L Creatine Kinase Index (0.0-2.5) % CK-MB (CK-2) (0.00-3.60) ng/mL Troponin I (0.000-0.056) ng/mL NT-Pro-B Natriuret Pep (0-125) pg/mL Total Protein (6.4-8.2) g/dL Albumin (3.4-5.0) g/dL Triglycerides (30-150) mg/dL Cholesterol (100-200) mg/dL LDL Cholesterol, Calc (0-100) mg/dL HDL Cholesterol (40-60) mg/dL TSH, Ultra Sensitive (0.358-3.740) mIU/mL 01/13/17 01/13/17 01/14/17 Range/Units 21:47 21:47 06:17 WBC 4.4 (4.0-10.2) K/uL RBC 4.21 L (4.33-5.41) M/uL Hgb 12.4 L (13.1-16.8) g/dL Hct 37.0 L (39.0-49.0) % MCV 87.9 (84.0-98.0) fL MCH 29.5 (28.2-33.3) pg MCHC 33.5 (31.7-36.0) g/dL RDW 13.1 (11.2-14.1) % Plt Count 194 (150-350) K/uL Neut % (Auto) 51.7 (45.0-80.0) % Lymph % (Auto) 33.9 (10.0-50.0) % [place] % (Auto) 9.6 (2.0-14.0) % Eos % (Auto) 4.1 (0.0-5.0) % Baso % (Auto) 0.7 (0.0-2.0) % Neut # (Auto) 2.27 (1.40-7.00) K/uL Lymph # (Auto) 1.49 (0.50-3.50) K/uL [place] # (Auto) 0.42 (0.00-1.00) K/uL Eos # (Auto) 0.18 (0.00-0.50) K/uL Baso # (Auto) 0.03 (0.00-0.20) K/uL PT (9.8-11.7) SEC INR APTT (22.1-29.8) SEC D-Dimer, Quantitative (0-400) ng/mL Sodium 141 (136-145) mmol/L Potassium 4.0 (3.5-5.1) mmol/L Chloride 107 (98-107) mmol/L Carbon Dioxide 24.1 (21.0-32.0) mmol/L BUN 15 (7-18) mg/dL Creatinine 0.87 (0.51-1.17) mg/dL Est Cr Clr Drug Dosing 92.56 mL/min Estimated GFR (MDRD) > 60 mL/min Glucose 213 H (74-106) mg/dL Hemoglobin A1c (4.3-5.7) % Lactic Acid 1.5 (0.4-2.0) mmol/L Uric Acid 4.6 (2.6-7.2) mg/dL Calcium 8.8 (8.5-10.1) mg/dL Magnesium 1.8 (1.8-2.4) mg/dL Total Bilirubin 0.3 (0.2-1.0) mg/dL AST 10 L (15-37) U/L ALT 19 (12-78) U/L Alkaline Phosphatase 76 (46-116) IU/L Creatine Kinase 80 (26-308) U/L Creatine Kinase Index 1.0 (0.0-2.5) % CK-MB (CK-2) 0.80 (0.00-3.60) ng/mL Troponin I 0.013 (0.000-0.056) ng/mL NT-Pro-B Natriuret Pep 65 (0-125) pg/mL Total Protein 6.4 (6.4-8.2) g/dL Albumin 3.3 L (3.4-5.0) g/dL Triglycerides (30-150) mg/dL Cholesterol (100-200) mg/dL LDL Cholesterol, Calc (0-100) mg/dL HDL Cholesterol (40-60) mg/dL TSH, Ultra Sensitive 1.193 (0.358-3.740) mIU/mL 01/14/17 01/14/17 Range/Units 06:17 06:17 WBC (4.0-10.2) K/uL RBC (4.33-5.41) M/uL Hgb (13.1-16.8) g/dL Hct (39.0-49.0) % MCV (84.0-98.0) fL MCH (28.2-33.3) pg MCHC (31.7-36.0) g/dL RDW (11.2-14.1) % Plt Count (150-350) K/uL Neut % (Auto) (45.0-80.0) % Lymph % (Auto) (10.0-50.0) % [place] % (Auto) (2.0-14.0) % Eos % (Auto) (0.0-5.0) % Baso % (Auto) (0.0-2.0) % Neut # (Auto) (1.40-7.00) K/uL Lymph # (Auto) (0.50-3.50) K/uL [place] # (Auto) (0.00-1.00) K/uL Eos # (Auto) (0.00-0.50) K/uL Baso # (Auto) (0.00-0.20) K/uL PT (9.8-11.7) SEC INR APTT (22.1-29.8) SEC D-Dimer, Quantitative (0-400) ng/mL Sodium 140 (136-145) mmol/L Potassium 4.3 (3.5-5.1) mmol/L Chloride 107 (98-107) mmol/L Carbon Dioxide 24.9 (21.0-32.0) mmol/L BUN 14 (7-18) mg/dL Creatinine 0.76 (0.51-1.17) mg/dL Est Cr Clr Drug Dosing 105.96 mL/min Estimated GFR (MDRD) > 60 mL/min Glucose 174 H (74-106) mg/dL Hemoglobin A1c 8.2 H (4.3-5.7) % Lactic Acid (0.4-2.0) mmol/L Uric Acid (2.6-7.2) mg/dL Calcium 8.4 L (8.5-10.1) mg/dL Magnesium (1.8-2.4) mg/dL Total Bilirubin 0.5 (0.2-1.0) mg/dL AST 11 L (15-37) U/L ALT 19 (12-78) U/L Alkaline Phosphatase 56 (46-116) IU/L Creatine Kinase 69 (26-308) U/L Creatine Kinase Index 1.2 (0.0-2.5) % CK-MB (CK-2) 0.80 (0.00-3.60) ng/mL Troponin I 0.120 H* (0.000-0.056) ng/mL NT-Pro-B Natriuret Pep (0-125) pg/mL Total Protein 5.9 L (6.4-8.2) g/dL Albumin 3.1 L (3.4-5.0) g/dL Triglycerides 145 (30-150) mg/dL Cholesterol 135 (100-200) mg/dL LDL Cholesterol, Calc 68 (0-100) mg/dL HDL Cholesterol 38 L (40-60) mg/dL TSH, Ultra Sensitive (0.358-3.740) mIU/mL GUICHO Results - Last 24 hrs: None Med Orders - Current: Current Medications Acetaminophen (Tylenol) 650 mg PO Q4H PRN PRN Reason: Pain Heparin Sodium/Dextrose (Heparin 25,000 Units In D5w 500 Ml) 25,000 units in 500 mls @ 20 mls/hr IV TITRATE DULCE PRN Reason: Protocol Sodium Chloride (Normal Saline) 1,000 mls @ 30 mls/hr IV ASDIRECTED DULCE Lisinopril (Prinivil) 10 mg PO DAILY COUNTS INCLUDE 234 BEDS AT THE [facility] Last Admin: 01/14/17 07:23 Dose: 10 mg Simvastatin (Zocor) 80 mg PO ONETIME ONE Stop: 01/14/17 07:37 Sodium Chloride (Saline Flush) 10 ml FLUSH ASDIRECTED PRN PRN Reason: Keep Vein Open Last Admin: 01/13/17 22:15 Dose: 10 ml Sodium Chloride (Saline Flush) 10 ml FLUSH Q12HR PRN PRN Reason: Keep Vein Open Tamsulosin HCl (Flomax) 0.4 mg PO DAILY COUNTS INCLUDE 234 BEDS AT THE [facility] Last Admin: 01/14/17 07:22 Dose: 0.4 mg Temazepam (Restoril) 15 mg PO BEDTIME PRN PRN Reason: Insomnia Discontinued Medications Famotidine (Pepcid) 40 mg IVPUSH ONETIME ONE Stop: 01/13/17 21:43 Last Admin: 01/13/17 22:09 Dose: 40 mg Heparin Sodium (Porcine) (Heparin Sodium) 5,000 units IVPUSH ONETIME ONE Stop: 01/14/17 07:36 Ticagrelor (Brilinta) 180 mg PO ONETIME ONE Stop: 01/13/17 21:43 Last Admin: 01/13/17 22:09 Dose: 180 mg - Exam Quality Assessment: Reports: Supplemental Oxygen, DVT Prophylaxis. Denies: Central Line/PICC, Urine Catheter, Skin Breakdown, Restraints General: Reports: Alert, Oriented, Cooperative, No Acute Distress HEENT: Reports: Pupils Equal, Pupils Reactive, EOMI, Mucous Membr. Moist/[place] Neck: Reports: Supple, No JVD, No Thyromegaly, Carotid Bruit (Bilateral carotid bruitsmild). Denies: Lymphadenopathy Lungs: Reports: Clear to Auscultation, Normal Respiratory Effort. Denies: Rub Cardiovascular: Reports: Regular Rate, Regular Rhythm, No Murmurs. Denies: Gallops, Rubs GI/Abdominal Exam: Normal Bowel Sounds, Soft, Non-Tender, No Organomegaly, No Distention, No Abnormal Bruit, No Mass, Pelvis Stable, Other (Obese). No: Guarding (Male) Exam: Deferred Rectal (Males) Exam: Deferred Back Exam: Reports: Normal Inspection, Full Range of Motion. Denies: CVA Tenderness (L), CVA Tenderness (R), Muscle Spasm Extremities: Normal Range of Motion, Non-Tender, Normal Capillary Refill, Pedal Edema (Stable +1 bilateral pedal/pretibial edema). No: Mickie's Sign Skin: Reports: Warm, Dry, Intact. Denies: Ecchymosis Neurological: Reports: No New Focal Deficit, Other (No clinical orthostasis) Psy/Mental Status: Reports: Alert, Normal Affect, Normal Mood. Denies: Agitated , Hallucinations, Withdrawal Symptoms EKG INTERPRETATION EKG Date: 01/14/17 Time: 07:33 Rhythm: Other (Sinus bradycardia) Rate (Beats/Min): 55 [place]: Normal (Left cardiac axis) P-Wave: Enlarged (Mild diffuse biphasic P waves) QRS: Normal (QRS interval of 0.09 seconds representing repolarization changes) ST-T: Other (Stable T-wave inversion in lead 3 with new T-wave inversion in aVF) QT: Normal RI/PQ Interval: 0.17 seconds with mild pulmonary hypertension by EKG Comparison: Change From Previous EKG (On 01/13/17) EKG Interpretation Comments: 1. Inferior wall cardiac ischemia 2. Pulmonary hypertension by EKG 3. Left atrial enlargement-probable 4. Sinus bradycardia *Q Meaningful Use (DIS) - VTE *Q VTE Criteria *Q: - Stroke *Q Stroke Criteria *Q: - AMI *Q AMI Criteria *Q:
[2017-01-14] MEDS ORDERED: Tamsulosin 0.4 MG Cap.ER PO SCH (08:00)
[2017-01-14] MEDS ORDERED: Lisinopril 10 MG Tab PO SCH (08:00)
== END 2017-01-14 09:05 ==
LOC: LL.ED 21:39 → LL.MS 23:50
PROVIDERS: ADMIT Family Medicine; ATTEND Family Medicine
DX: I21.4 Non-ST elevation (NSTEMI) myocardial infarction (principal); R07.2 Precordial pain; R00.1 Bradycardia, unspecified; J43.1 Panlobular emphysema; E11.42 Type 2 diabetes mellitus with diabetic polyneuropathy; E78.2 Mixed hyperlipidemia; E88.09 Other disorders of plasma-protein metabolism, not elsewhere classified; M15.0 Primary generalized (osteo)arthritis; I10 Essential (primary) hypertension; K21.9 Gastro-esophageal reflux disease without esophagitis; G47.30 Sleep apnea, unspecified; D64.9 Anemia, unspecified; E83.51 Hypocalcemia; Z79.82 Long term (current) use of aspirin; Z79.899 Other long term (current) drug therapy; N40.0 Benign prostatic hyperplasia without lower urinary tract symptoms; Z98.84 Bariatric surgery status; Z98.890 Other specified postprocedural states; Z87.891 Personal history of nicotine dependence
CPT/HCPCS: 36415; 71010; 80053; 80061; 82550; 82553; 83036; 83605; 83735; 83880; 84443; 84484; 84550; 85025; 85379; 85610; 85730; 93005; 96365; 96375; 99285; A9270; G0378; J1644; J7030; J7050; 96374; S0028

== ENCOUNTER 2021-07-13 11:00 | Emergency (ER) | payer MEDICARE, OTHER ==
[2021-07-13] MEDS ORDERED: Nitroglycerin 0.4 MG Tab.SL SL ONE ×2 (11:17→11:31)
[2021-07-13] MEDS ORDERED: Aspirin 81 MG Tab.Chew PO ONE (11:39)
[2021-07-13] MEDS ORDERED: Acetaminophen 325 MG Tab PO ONE (11:40)
[2021-07-13 11:51] LABS: ANION GAP 10.5 meq/L (7-15); CHLORIDE,CL 106 mmol/L (98-107); SODIUM,NA 139 mmol/L (136-145)
[2021-07-13 11:59] LABS: PTT,PARTIAL THROMBOPLSTIN TIME 25.2 SEC (23.6-29.8)
[2021-07-13] MEDS ORDERED: Sodium Chloride 0.9% 10 ML Syringe FLUSH PRN (12:07)
[2021-07-13] MEDS ORDERED: Sodium Chloride 0.9% 1,000 ML IV SCH (13:00)
[2021-07-13] MEDS ORDERED: Nitroglycerin/D5W 25 MG/250 ML BOTTLE IV SCH (13:00)
[2021-07-13] MEDS ORDERED: Metoprolol Succinate 25 MG Tab.ER PO ONE (16:50)
[2021-07-13] MEDS ORDERED: Isosorbide Mononitrate 30 MG Tab.ER PO ONE (16:50)
[2021-07-13 19:47] VITALS: BP 138/66; PULSE 60
== END 2021-07-13 17:40 | disposition home or self-care (01) ==
LOC: LL.ED 11:00
DX: I25.110 Atherosclerotic heart disease of native coronary artery with unstable angina pectoris (principal); I25.2 Old myocardial infarction; I10 Essential (primary) hypertension; J44.9 Chronic obstructive pulmonary disease, unspecified; E11.42 Type 2 diabetes mellitus with diabetic polyneuropathy; E66.9 Obesity, unspecified; Z68.36 Body mass index [BMI] 36.0-36.9, adult; Z79.82 Long term (current) use of aspirin; Z79.84 Long term (current) use of oral hypoglycemic drugs; Z88.5 Allergy status to narcotic agent; Z79.899 Other long term (current) drug therapy
CPT/HCPCS: 36415; 71045; 80053; 82550; 83605; 83735; 83880; 84443; 84484; 85025; 85379; 85610; 85730; 93005; 93010; 96365; 96366; 99284; 99285-25; A9270-GY; J3490; J7030

== ENCOUNTER 2022-12-28 18:32 | Emergency (ER) | payer MEDICARE, OTHER, MEDICAID ==
[2022-12-28 18:40] VITALS: BP 129/59; PULSE 71
[2022-12-28] MEDS ORDERED: Erythromycin Base 0.5% Ophth Oint 3.5 GM Tube EYELF ONE (19:26)
== END 2022-12-28 19:45 | disposition home or self-care (01) ==
LOC: LL.ED 18:32
DX: H10.9 Unspecified conjunctivitis (principal); I25.2 Old myocardial infarction; I10 Essential (primary) hypertension; E11.9 Type 2 diabetes mellitus without complications; E11.40 Type 2 diabetes mellitus with diabetic neuropathy, unspecified; Z79.899 Other long term (current) drug therapy; Z79.84 Long term (current) use of oral hypoglycemic drugs
CPT/HCPCS: 99282; 99283; A9270-GY

== ENCOUNTER 2023-03-01 14:42 | Emergency (ER) | payer MEDICARE, MEDICAID ==
[2023-03-01 14:48] VITALS: BP 144/71; PULSE 61
== END 2023-03-01 15:25 | disposition home or self-care (01) ==
LOC: LL.ED 14:42
DX: T16.2XXA Foreign body in left ear, initial encounter (principal); I25.10 Atherosclerotic heart disease of native coronary artery without angina pectoris; I10 Essential (primary) hypertension; I25.2 Old myocardial infarction; J44.9 Chronic obstructive pulmonary disease, unspecified; E78.00 Pure hypercholesterolemia, unspecified; M19.90 Unspecified osteoarthritis, unspecified site; E11.40 Type 2 diabetes mellitus with diabetic neuropathy, unspecified; E66.9 Obesity, unspecified; Z95.5 Presence of coronary angioplasty implant and graft; Z79.82 Long term (current) use of aspirin; Z79.84 Long term (current) use of oral hypoglycemic drugs; Z79.899 Other long term (current) drug therapy
CPT/HCPCS: 69200; 99282

== ENCOUNTER 2023-06-25 12:00 | Emergency (ER) | payer MEDICARE, OTHER ==
[2023-06-25 14:17] VITALS: BP 109/84; PULSE 61
== END 2023-06-25 13:55 | disposition home or self-care (01) ==
LOC: LL.ED 12:00
DX: R29.818 Other symptoms and signs involving the nervous system (principal); E11.9 Type 2 diabetes mellitus without complications; E66.9 Obesity, unspecified; I25.10 Atherosclerotic heart disease of native coronary artery without angina pectoris; E78.00 Pure hypercholesterolemia, unspecified; I10 Essential (primary) hypertension; I25.2 Old myocardial infarction; J44.9 Chronic obstructive pulmonary disease, unspecified; M19.90 Unspecified osteoarthritis, unspecified site; E11.40 Type 2 diabetes mellitus with diabetic neuropathy, unspecified; Z95.1 Presence of aortocoronary bypass graft; Z79.82 Long term (current) use of aspirin; Z79.84 Long term (current) use of oral hypoglycemic drugs; Z79.899 Other long term (current) drug therapy
CPT/HCPCS: 70450; 99284